=== PATIENT | male | born 1935 | race Caucasian/White ===

== ENCOUNTER 2019-06-25 10:56 | Inpatient (IN) ==
--- NOTE | 2019-06-25 12:00 | XRay Report ---
XR chest 1V portable CLINICAL HISTORY: weakness COMPARISON STUDY: No previous studies for comparison. 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 There is no pneumothorax or pleural effusi on. No consolidation is present. No evidence for pulmonary edema. Linear right lower lung opacity fav ors atelectasis. There is mild cardiomegaly. IMPRESSION: No acute cardiopulmonary findings. Electronically signed by: Geovanni Lindo M.D. 06/25/2019 11:59 AM
--- NOTE | 2019-06-25 12:01 | XRay Report ---
XR knee LT 3V CLINICAL HISTORY: 84 years-old Male presenting with fall onto L knee 3 days ago, now with weakness. TECHNIQUE: Frontal, crosstable lateral, and sunrise views of the left knee were obtained. COMPARISON: None. FINDINGS: Knee joint congruent. Moderate to severe medial joint space loss. Tricompartmental osteophytosis. Cho ndrocalcinosis evident in the lateral compartment. Moderate knee joint effusion primarily in the supr apatellar recess with an equivocal fat fluid level. No acute fracture or malalignment. Atheroscleroti c calcifications. Suspected underlying osteopenia. IMPRESSION: 1. Moderate knee joint effusion with questionable lipohemarthrosis. If there is concern, consider CT for further evaluation of the possible intra-articular fracture. 2. No other radiographic evidence to suggest fracture. 3. Tricompartmental degenerative changes most severe in the medial compartment. 4. Osteopenia. Electronically signed by: Galindo Rutledge M.D. 06/25/2019 12:00 PM
[2019-06-25] MEDS: SODIUM CHLORIDE 0.9% 1000ML 1,000 ML IV SCH ×2 (12:10→19:41)
[2019-06-25 12:20] LABS: Eosinophils # (auto) 0.01 K/uL (0-0.5); Eosinophils % (auto) 0.2 %; Hematocrit (blood only) 43.7 % (42-52); Hemoglobin 14.6 g/dL (14.0-18.0); Immature Granulocytes # (auto) 0.02 K/uL (0.00-0.02); Immature Granulocytes % (auto) 0.4 %; Lymphocytes # (auto) 1.06 K/uL (1.2-3.4); Lymphocytes % (auto) 19.2 %; Mean Corpuscular Hemoglobin 30.7 pg (25-34); Mean Corpuscular Hgb Conc 33.4 g/dL (32-36); Mean Corpuscular Volume 91.8 fL (80-100); Mean Platelet Volume 10.5 fL (7.4-10.4); Monocytes # (auto) 0.78 K/uL (0.11-0.59); Monocytes % (auto) 14.1 %; Neutrophils # (auto) 3.65 K/uL (1.4-6.5); Neutrophils % (auto) 66.1 %; Platelet Count 130 K/uL (130-400); RDW Coefficient of Variation 13.4 % (11.5-14.5); Red Blood Count 4.76 M/uL (4.7-6.1); White Blood Count 5.52 K/uL (4.8-10.8)
[2019-06-25 12:35] LABS: Alanine Aminotransferase 22 U/L (12-78); Albumin Level 3.3 gm/dl (3.4-5.0); Aspartate Aminotransferase 12 U/L (15-37); BUN Creatinine Ratio 20.6 (10-20); Blood Urea Nitrogen 21 mg/dl (7-18); Calcium 9.5 mg/dl (8.5-10.1); Carbon Dioxide 26 mmol/L (21-32); Chloride 103 mmol/L (98-107); Creatinine Clr Calc Pharmacy 61.4 ml/min; Est GFR (African American) 76.8; Est GFR (Non-African American) 66.2; Glucose 233 mg/dl (70-99); Potassium 4.1 mmol/L (3.5-5.1); Sodium 136 mmol/L (136-145)
--- NOTE | 2019-06-25 12:37 | CT Scan Report ---
CT OF THE HEAD WITHOUT CONTRAST CLINICAL HISTORY: falls COMPARISON STUDY: No previous studies for comparison. CT DOSE: 537.48 mGy.cm TECHNIQUE: Helical axial images of the head were obtained without IV contrast. Automated exposure con trol was utilized for the study. A dose lowering technique was utilized adhering to the principles o f ALARA. FINDINGS: No acute intracranial hemorrhage, midline shift or mass effect is present. Mild atrophy is noted. This accounts for mild ventricular dilatation. The basilar cisterns are patent. There are no e xtra-axial collections. White matter hypodensity suggests small vessel disease. There are no findings to suggest acute dural sinus thrombosis or acute territorial infarct. There is no calvarial fracture . Incidental note is made of a partially imaged 5.2 cm right occipital scalp lipoma. IMPRESSION: No acute intracranial findings. Electronically signed by: Geovanni Lindo M.D. 06/25/2019 12:36 PM
[2019-06-25 12:44] LABS: Albumin Globulin Ratio 0.7 (0.9-2); Alkaline Phosphatase 95 U/L (45-117); Bilirubin,Total 1.4 mg/dl (0.2-1); Globulin 4.9 gm/dl (2.5-4.0); Total Protein 8.2 gm/dl (6.4-8.2); Troponin I < 0.015 ng/ml (0-0.045)
[2019-06-25 13:03] LABS: Appearance Urine Clear (Clear); Bacteria Urine Automated 1+ (Negative); Bilirubin Urine Negative (Negative); Blood Urine 1+ (Negative); Cast Urine Automated 0 /lpf (0-5); Color Urine Yellow; Epithelial Cell Urine Auto 0-5 /lpf (0-5); Glucose Urine UA 3+ (Negative); Ketones Urine Negative (Negative); Leukocyte Esterase Urine 2+ (Negative); Nitrite Urine Negative (Negative); Protein Urine Negative (Negative); RBC Urine Automated 0-4 /hpf (0-4); Specific Gravity Urine 1.026 (1.000-1.030); Urobilinogen Urine Negative (Negative); pH Urine 6.5 (4.5-7.5)
--- NOTE | 2019-06-25 14:04 | CT Scan Report ---
CT knee LT wo con CT DOSE: 194.91 mGy.cm CLINICAL HISTORY: Pain status post trauma. Joint effusion. No fracture visualized on conventional x-r ay. TECHNIQUE: Helical images were acquired in the transverse plane. Sagittal and coronal reformatted yasmany ges were reviewed. A dose lowering technique was utilized adhering to the principles of ALARA. COMPARISON STUDY: X-ray study dated 06/25/2019 FINDINGS: There is a suprapatellar joint effusion. There is a small popliteal cyst. The bones are osteopenic. There is chondrocalcinosis. There is marked narrowing in the medial joint compartment. There is an age-indeterminate fracture of the anterior aspect of the lateral tibial plateau demonstra ting 2 mm of depression. If more accurate dating is necessary, an MRI could be obtained in follow-up. IMPRESSION: 1. Age-indeterminate fracture of the anterior aspect of the lateral tibial plateau demonstrating 2 mm of depression 2. Advanced osteoarthritic changes with chondrocalcinosis 3. Osteopenia 4. Suprapatellar joint effusion and small popliteal cyst. No lipohemarthrosis identified Electronically signed by: Steven Holm M.D. 06/25/2019 2:03 PM
--- NOTE | 2019-06-25 15:01 | Emergency Department Note ---
Entered by Cynthia Andre acting as a scribe for History of Present Illness General Chief complaint: Knee Injury/Pain Source: patient History of Present Illness Onset (ago): day(s) 2 Location: knee (left) Pain Consistency: + other (persistent) Maximum Pain Intensity: 0 Exacerbated By: + movement (movement of knee, standing on leg) Associated symptoms: + denies other symptoms (neck pain, head trauma, vomiting, nausea, weakness) and + other (difficulty ambulating, excoriations around knee, contusion around knee, fluid found on x-ray) The patient is a 84 year old male that is presenting to the Emergency Room with complaints of persistent left knee pain that started 2 days ago following a fall. The patient reports that he was walking up the stairs into his house when he tripped and fell onto his knee. He states that he laid down on his porch for 1 hour before being found by his neighbors. He notes that he has been having inc reased difficulty moving around his house since that time. He states that the pain worsens with movement of the leg or with putting weight on the leg. The patient reports that he was unable to stand up from his toilet 2 days ago and had to call his relatives to help him stand up. He states that he was taken to urgent care in [facility] and had an x-ray done at that time. He notes that there was no fracture or dislocation noted on the x-ray. He reports that he was found to have a contusion with fluid buildup in the joint as well as arthritic changes. He notes that he was started on Prednisone which he started taking yesterday. He denies any head trauma, neck pain, vomiting, or nausea. He denies any weakness in the leg. The patient reports that he has fallen in the past but not due to his knee. He denies any history of surgery in his left knee. He denies taking any blood thinners besides a daily baby aspirin. He notes that he lives by himself in a house. He reports that he has a history of CAD with a pacemaker. He states that he has a history of diabetes. Home Medications Home Medications Medication Instructions Recorded Confirmed Type brinzolamide [Azopt] 1 drp OPB BID 06/25/19 06/25/19 History carvedilol [Coreg] 25 mg PO BIDM 06/25/19 06/25/19 History furosemide 40 mg PO QAM 06/25/19 06/25/19 History insulin glargine [Lantus Solostar 30 unit SUBCUT QAM 06/25/19 06/25/19 History U-100 Insulin] isosorbide mononitrate 30 mg PO QAM 06/25/19 06/25/19 History levothyroxine 112 mcg PO QAM 06/25/19 06/25/19 History lisinopril 2.5 mg PO MOWEFR 06/25/19 06/25/19 History potassium chloride [Klor-Con M20] 20 meq PO QAM 06/25/19 06/25/19 History prednisone 5 - 30 mg PO DAILY 06/25/19 06/25/19 History simvastatin 10 mg PO HS 06/25/19 06/25/19 History sitagliptin [Januvia] 100 mg PO QAM 06/25/19 06/25/19 History spironolactone [Aldactone] 25 mg PO QAM 06/25/19 06/25/19 History rivaroxaban [Xarelto] 10 mg PO DAILY 21 Days #21 tab 06/26/19 Rx Allergies Allergy/AdvReac Type Severity Reaction Status Date / Time metolazone AdvReac Dizziness Unverified 06/25/19 12:29 and Blood Pressure Dropped Past Med/Surg History Medical History CAD (coronary artery disease) Diabetes Pacemaker Family History Other Family history non-contributory Social History Preferred Language: Divehi Communication Ability: Effective Transition Lead Required: No Beliefs That Will Affect Care: None Current Living Situation: Alone current occupational status: retired Other Information That Helps Us Care for You: No Feels Safe at Home: Yes Safety Concerns: Feels Safe At This Time Smoking Status: Former smoker Hx Alcohol Use: Yes Alcohol type: beer Hx Substance Use: No Review of Systems See HPI for pertinent positives & negatives. and A total of 10 systems reviewed and were otherwise negative Physical Exam Vital Signs Vital Signs - 24 hr 06/25/19 19:56 06/25/19 20:25 06/25/19 20:28 Temperature 36.6 C 36.5 C Temperature Source Oral Oral Pulse Rate 61 Pulse Rate [Apical] 83 58 L Pulse Rate [Finger] Respiratory Rate 16 18 Blood Pressure [Left Arm] Blood Pressure [Right Arm] 109/70 144/71 H Blood Pressure Mean [Left Arm] Blood Pressure Mean [Right Arm] 83 95 Blood Pressure Position [Left Arm] Pulse Oximetry 93 95 Oxygen Delivery Method 06/25/19 23:42 06/25/19 23:45 06/26/19 03:48 Temperature 36.6 C 36.5 C Temperature Source Oral Oral Pulse Rate 60 Pulse Rate [Apical] Pulse Rate [Finger] 60 61 Respiratory Rate 18 20 Blood Pressure [Left Arm] 125/75 126/77 Blood Pressure [Right Arm] Blood Pressure Mean [Left Arm] 91 93 Blood Pressure Mean [Right Arm] Blood Pressure Position [Left Arm] Semi-fowlers Lying Pulse Oximetry 92 95 Oxygen Delivery Method Room Air Room Air 06/26/19 07:24 06/26/19 08:00 Temperature 36.5 C Temperature Source Oral Pulse Rate 61 Pulse Rate [Apical] 16 L Pulse Rate [Finger] 60 Respiratory Rate 96 H Blood Pressure [Left Arm] 127/75 Blood Pressure [Right Arm] Blood Pressure Mean [Left Arm] 92 Blood Pressure Mean [Right Arm] Blood Pressure Position [Left Arm] Lying Pulse Oximetry 96 Oxygen Delivery Method Vital signs reviewed. General: Elderly chronically ill-appearing male, in no significant distress. HEENT: No scleral icterus, PERRLA, neck supple. Atraumatic. Poor dentition, chewing tobacco on exam. Cardiovascular: Regular rate and rhythm, no extra sounds. Pulmonary: Clear to auscultation bilaterally, normal work of breathing. Abdomen: Soft, nontender, nondistended, positive bowel sounds. Musculoskeletal: Atraumatic, no peripheral edema. Mild excoriations to anterior left knee with minimal effusion. No ecchymosis. Chronic arthritic changes bilaterally. Pain with range of motion of left knee. No ligamentous laxity. Neurologic: Patient awake alert and oriented x 3. Skin: Warm, dry, no rash Course Course 1118:The patient was evaluated in room C05. A complete history and physical examination was performed. 1326: Radiology states that there is a possible intra-articular fracture in the left knee and recommended a follow up CT, which has been ordered. 1429: Upon reevaluation, the patient is resting comfortably. I discussed laboratory and radiographic results with the patient. He verbalized agreement of the treatment plan. The patient will be evaluated for further management and care. 1444: I discussed the patients case with Dr. Santillan, [facility], who will evaluate the patient for further management and care. 1452: I discussed the patient's case with Dr. Olivera, Orthopedic Surgery, who will evaluate the patient in the ED for further care in the hospital. Administered Medications Brinzolamide (Azopt) 1 drops OPB BID ROSITA Stop: 07/25/19 20:59 Last Admin: 06/26/19 07:42 Dose: 1 drops Documented by: [id number] Admin: 06/25/19 21:41 Dose: 1 drops Documented by: [id number] Carvedilol (Coreg) 25 mg PO BIDM ROSITA Stop: 07/26/19 07:59 Last Admin: 06/26/19 16:43 Dose: 25 mg Documented by: [id number] Admin: 06/26/19 07:42 Dose: 25 mg Documented by: [id number] Furosemide (Lasix) 40 mg PO QAM ROSITA Stop: 07/26/19 08:59 Last Admin: 06/26/19 07:43 Dose: 40 mg Documented by: [id number] Ceftriaxone Sodium 2,000 mg/ (Dextrose) 70 mls @ 140 mls/hr IV Q24H ROSITA Stop: 07/06/19 00:59 Last Infusion: 06/26/19 01:52 Dose: 0 mls/hr Documented by: [id number] Admin: 06/26/19 01:22 Dose: 140 mls/hr Documented by: [id number] Insulin Aspart (Novolog Flexpen) 0 units SC ACHS ROSITA Stop: 07/26/19 16:29 Last Admin: 06/26/19 17:39 Dose: 8 units Documented by: [id number] Cosigned by: [id number] Insulin Glargine (Lantus Solostar Pen) 30 units SQ QAM ROSITA Stop: 07/26/19 08:59 Last Admin: 06/26/19 07:43 Dose: 30 units Documented by: [id number] Cosigned by: [id number] Isosorbide Mononitrate (Imdur Extended Rel) 30 mg PO QAM ROSITA Stop: 07/26/19 08:59 Last Admin: 06/26/19 07:43 Dose: 30 mg Documented by: [id number] Levothyroxine Sodium (Synthroid) 112 mcg PO DAILYBB [facility] Stop: 07/26/19 06:29 Last Admin: 06/26/19 05:55 Dose: 112 mcg Documented by: [id number] Oxycodone/Acetaminophen (Percocet 5mg/325mg) 1 tab PO Q4H PRN PRN Reason: Pain Stop: 07/09/19 19:38 Last Admin: 06/26/19 07:46 Dose: 1 tab Documented by: [id number] Potassium Chloride (Klor-Con M20) 20 meq PO QAM [facility] Stop: 07/26/19 08:59 Last Admin: 06/26/19 07:43 Dose: 20 meq Documented by: [id number] Prednisone (Prednisone) 20 mg PO DAILY [facility]; Taper Stop: 06/30/19 08:59 Last Admin: 06/26/19 07:43 Dose: 20 mg Documented by: [id number] Rivaroxaban (Xarelto) 10 mg PO DAILY [facility] Stop: 07/16/19 09:01 Last Admin: 06/26/19 09:46 Dose: 10 mg Documented by: [id number] Simvastatin (Zocor) 10 mg PO HS [facility] Stop: 07/25/19 20:59 Last Admin: 06/25/19 21:42 Dose: 10 mg Documented by: [id number] Spironolactone (Aldactone) 25 mg PO QAM [facility] Stop: 07/26/19 08:59 Last Admin: 06/26/19 07:42 Dose: 25 mg Documented by: [id number] Discontinued Medications Sodium Chloride (Nss 1000ml) 1,000 mls @ 125 mls/hr IV .Q8H [facility] Stop: 07/25/19 11:29 Last Admin: 06/25/19 19:41 Dose: Not Given Documented by: [id number] Infusion: 06/25/19 19:41 Dose: 0 mls/hr Documented by: [id number] Admin: 06/25/19 12:10 Dose: 125 mls/hr Documented by: [id number] Sodium Chloride (Nss 1000ml) 500 mls @ 999 mls/hr IV .Q31M ONE Stop: 06/26/19 12:06 Last Infusion: 06/26/19 12:22 Dose: 0 mls/hr Documented by: [id number] Admin: 06/26/19 11:46 Dose: 999 mls/hr Documented by: [id number] Medical Decision Making Differential Diagnosis Differential diagnosis: Etiologies such as fracture, dislocation, neurovascular compromise, compartment syndrome, soft tissue injury, as well as others were entertained. Medical Records Attestation: I reviewed the patient's medical records. Home Medications Current Medication List: was personally reviewed by me Laboratory Data Attestation: I reviewed the patient's lab results. Result diagrams: 06/26/19 09:05 06/26/19 09:05 Lab Results 06/25/19 06/25/19 06/25/19 Range/Units 12:00 12:00 12:00 WBC 5.52 (4.8-10.8) K/uL RBC 4.76 (4.7-6.1) M/uL Hgb 14.6 (14.0-18.0) g/dL Hct 43.7 (42-52) % MCV 91.8 (80-100) fL MCH 30.7 (25-34) pg MCHC 33.4 (32-36) g/dL RDW Std Deviation 45.0 (36.4-46.3) fL RDW Coeff of Glenda 13.4 (11.5-14.5) % Plt Count 130 (130-400) K/uL MPV 10.5 H (7.4-10.4) fL Immature Gran % (Auto) 0.4 % Neut % (Auto) 66.1 % Lymph % (Auto) 19.2 % [place] % (Auto) 14.1 % Eos % (Auto) 0.2 % Baso % (Auto) 0.0 % Immature Gran # (Auto) 0.02 (0.00-0.02) K/uL Neut # (Auto) 3.65 (1.4-6.5) K/uL Lymph # (Auto) 1.06 L (1.2-3.4) K/uL [place] # (Auto) 0.78 H (0.11-0.59) K/uL Eos # (Auto) 0.01 (0-0.5) K/uL Baso # (Auto) 0.00 (0-0.2) K/uL Sodium 136 (136-145) mmol/L Potassium 4.1 (3.5-5.1) mmol/L Chloride 103 (98-107) mmol/L Carbon Dioxide 26 (21-32) mmol/L Anion Gap 7.0 (3-11) BUN 21 H (7-18) mg/dl Creatinine 1.02 (0.6-1.4) mg/dl Est Cr Clr Drug Dosing 61.4 ml/min Est GFR ( Amer) 76.8 Est GFR (Non-Af Amer) 66.2 BUN/Creatinine Ratio 20.6 H (10-20) Glucose 233 H (70-99) mg/dl POC Glucose (70-99) Calcium 9.5 (8.5-10.1) mg/dl Total Bilirubin 1.4 H (0.2-1) mg/dl AST 12 L (15-37) U/L ALT 22 (12-78) U/L Alkaline Phosphatase 95 (45-117) U/L Troponin I < 0.015 (0-0.045) ng/ml Total Protein 8.2 (6.4-8.2) gm/dl Albumin 3.3 L (3.4-5.0) gm/dl Globulin 4.9 H (2.5-4.0) gm/dl Albumin/Globulin Ratio 0.7 L (0.9-2) TSH 1.330 (0.300-4.500) uIu/ml Urine Color Yellow Urine Appearance Clear (Clear) Urine pH 6.5 (4.5-7.5) Ur Specific [place] 1.026 (1.000-1.030) Urine Protein Negative (Negative) Urine Glucose (UA) 3+ H (Negative) Urine Ketones Negative (Negative) Urine Blood 1+ H (Negative) Urine Nitrite Negative (Negative) Urine Bilirubin Negative (Negative) Urine Urobilinogen Negative (Negative) Ur Leukocyte Esterase 2+ H (Negative) Urine WBC (Auto) 10-30 H (0-5) /hpf Urine RBC (Auto) 0-4 (0-4) /hpf U Hyaline Cast (Auto) 0 (0-5) /lpf U Epithel Cells (Auto) 0-5 (0-5) /lpf Urine Bacteria (Auto) 1+ H (Negative) Urine Yeast Budding A (None Prsent) 06/25/19 06/26/19 06/26/19 Range/Units 19:32 07:30 09:05 WBC 6.50 (4.8-10.8) K/uL RBC 4.17 L (4.7-6.1) M/uL Hgb 12.9 L (14.0-18.0) g/dL Hct 38.5 L (42-52) % MCV 92.3 (80-100) fL MCH 30.9 (25-34) pg MCHC 33.5 (32-36) g/dL RDW Std Deviation 44.6 (36.4-46.3) fL RDW Coeff of Glenda 13.2 (11.5-14.5) % Plt Count 131 (130-400) K/uL MPV 9.6 (7.4-10.4) fL Immature Gran % (Auto) 0.3 % Neut % (Auto) 60.2 % Lymph % (Auto) 25.4 % [place] % (Auto) 12.6 % Eos % (Auto) 1.2 % Baso % (Auto) 0.3 % Immature Gran # (Auto) 0.02 (0.00-0.02) K/uL Neut # (Auto) 3.91 (1.4-6.5) K/uL Lymph # (Auto) 1.65 (1.2-3.4) K/uL [place] # (Auto) 0.82 H (0.11-0.59) K/uL Eos # (Auto) 0.08 (0-0.5) K/uL Baso # (Auto) 0.02 (0-0.2) K/uL Sodium (136-145) mmol/L Potassium (3.5-5.1) mmol/L Chloride (98-107) mmol/L Carbon Dioxide (21-32) mmol/L Anion Gap (3-11) BUN (7-18) mg/dl Creatinine (0.6-1.4) mg/dl Est Cr Clr Drug Dosing ml/min Est GFR ( Amer) Est GFR (Non-Af Amer) BUN/Creatinine Ratio (10-20) Glucose (70-99) mg/dl POC Glucose 192 H 98 (70-99) Calcium (8.5-10.1) mg/dl Total Bilirubin (0.2-1) mg/dl AST (15-37) U/L ALT (12-78) U/L Alkaline Phosphatase (45-117) U/L Troponin I (0-0.045) ng/ml Total Protein (6.4-8.2) gm/dl Albumin (3.4-5.0) gm/dl Globulin (2.5-4.0) gm/dl Albumin/Globulin Ratio (0.9-2) TSH (0.300-4.500) uIu/ml Urine Color Urine Appearance (Clear) Urine pH (4.5-7.5) Ur Specific [place] (1.000-1.030) Urine Protein (Negative) Urine Glucose (UA) (Negative) Urine Ketones (Negative) Urine Blood (Negative) Urine Nitrite (Negative) Urine Bilirubin (Negative) Urine Urobilinogen (Negative) Ur Leukocyte Esterase (Negative) Urine WBC (Auto) (0-5) /hpf Urine RBC (Auto) (0-4) /hpf U Hyaline Cast (Auto) (0-5) /lpf U Epithel Cells (Auto) (0-5) /lpf Urine Bacteria (Auto) (Negative) Urine Yeast (None Prsent) 06/26/19 06/26/19 Range/Units 09:05 11:43 WBC (4.8-10.8) K/uL RBC (4.7-6.1) M/uL Hgb (14.0-18.0) g/dL Hct (42-52) % MCV (80-100) fL MCH (25-34) pg MCHC (32-36) g/dL RDW Std Deviation (36.4-46.3) fL RDW Coeff of Glenda (11.5-14.5) % Plt Count (130-400) K/uL MPV (7.4-10.4) fL Immature Gran % (Auto) % Neut % (Auto) % Lymph % (Auto) % [place] % (Auto) % Eos % (Auto) % Baso % (Auto) % Immature Gran # (Auto) (0.00-0.02) K/uL Neut # (Auto) (1.4-6.5) K/uL Lymph # (Auto) (1.2-3.4) K/uL [place] # (Auto) (0.11-0.59) K/uL Eos # (Auto) (0-0.5) K/uL Baso # (Auto) (0-0.2) K/uL Sodium 134 L (136-145) mmol/L Potassium 4.0 (3.5-5.1) mmol/L Chloride 103 (98-107) mmol/L Carbon Dioxide 26 (21-32) mmol/L Anion Gap 5.0 (3-11) BUN 19 H (7-18) mg/dl Creatinine 0.78 (0.6-1.4) mg/dl Est Cr Clr Drug Dosing 80.3 ml/min Est GFR ( Amer) 94.7 Est GFR (Non-Af Amer) 81.7 BUN/Creatinine Ratio 24.9 H (10-20) Glucose 162 H (70-99) mg/dl POC Glucose 211 H (70-99) Calcium 8.6 (8.5-10.1) mg/dl Total Bilirubin 1.1 H (0.2-1) mg/dl AST 38 H (15-37) U/L ALT 23 (12-78) U/L Alkaline Phosphatase 71 (45-117) U/L Troponin I (0-0.045) ng/ml Total Protein 6.6 (6.4-8.2) gm/dl Albumin 2.7 L (3.4-5.0) gm/dl Globulin 3.9 (2.5-4.0) gm/dl Albumin/Globulin Ratio 0.7 L (0.9-2) TSH (0.300-4.500) uIu/ml Urine Color Urine Appearance (Clear) Urine pH (4.5-7.5) Ur Specific [place] (1.000-1.030) Urine Protein (Negative) Urine Glucose (UA) (Negative) Urine Ketones (Negative) Urine Blood (Negative) Urine Nitrite (Negative) Urine Bilirubin (Negative) Urine Urobilinogen (Negative) Ur Leukocyte Esterase (Negative) Urine WBC (Auto) (0-5) /hpf Urine RBC (Auto) (0-4) /hpf U Hyaline Cast (Auto) (0-5) /lpf U Epithel Cells (Auto) (0-5) /lpf Urine Bacteria (Auto) (Negative) Urine Yeast (None Prsent) Imaging Data Radiologist's Impression: Radiology results as stated below per my review and the radiologist's interpretation: XR knee LT 3V CLINICAL HISTORY: 84 years-old Male presenting with fall onto L knee 3 days ago, now with weakness. TECHNIQUE: Frontal, crosstable lateral, and sunrise views of the left knee were obtained. COMPARISON: None. FINDINGS: Knee joint congruent. Moderate to severe medial joint space loss. Tricompartmental osteophytosis. Chondrocalcinosis evident in the lateral compartment. Moderate knee joint effusion primarily in the suprapatellar recess with an equivocal fat fluid level. No acute fracture or malalignment. Atherosclerotic calcifications. Suspected underlying osteopenia. IMPRESSION: 1. Moderate knee joint effusion with questionable lipohemarthrosis. If there is concern, consider CT for further evaluation of the possible intra-articular fracture. 2. No other radiographic evidence to suggest fracture. 3. Tricompartmental degenerative changes most severe in the medial compartment. 4. Osteopenia. Electronically signed by: Galindo Rutledge M.D. 06/25/2019 12:00 PM XR chest 1V portable CLINICAL HISTORY: weakness COMPARISON STUDY: No previous studies for comparison. 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 There is no pneumothorax or pleural effusion. No consolidation is present. No evidence for pulmonary edema. Linear right lower lung opacity favors atelectasis. There is mild cardiomegaly. IMPRESSION: No acute cardiopulmonary findings. Electronically signed by: Geovanni Lindo M.D. 06/25/2019 11:[address] OF THE HEAD WITHOUT CONTRAST CLINICAL HISTORY: falls COMPARISON STUDY: No previous studies for comparison. CT DOSE: 537.48 mGy.cm TECHNIQUE: Helical axial images of the head were obtained without IV contrast. Automated exposure control was utilized for the study. A dose lowering technique was utilized adhering to the principles of ALARA. FINDINGS: No acute intracranial hemorrhage, midline shift or mass effect is present. Mild atrophy is noted. This accounts for mild ventricular dilatation. The basilar cisterns are patent. There are no extra-axial collections. White matter hypodensity suggests small vessel disease. There are no findings to suggest acute dural sinus thrombosis or acute territorial infarct. There is no calvarial fracture. Incidental note is made of a partially imaged 5.2 cm right occipital scalp lipoma. IMPRESSION: No acute intracranial findings. Electronically signed by: Geovanni Lindo M.D. 06/25/2019 12:[address] knee LT wo con CT DOSE: 194.91 mGy.cm CLINICAL HISTORY: Pain status post trauma. Joint effusion. No fracture visualized on conventional x-ray. TECHNIQUE: Helical images were acquired in the transverse plane. Sagittal and coronal reformatted images were reviewed. A dose lowering technique was utilized adhering to the principles of ALARA. COMPARISON STUDY: X-ray study dated 06/25/2019 FINDINGS: There is a suprapatellar joint effusion. There is a small popliteal cyst. The bones are osteopenic. There is chondrocalcinosis. There is marked narrowing in the medial joint compar tment. There is an age-indeterminate fracture of the anterior aspect of the lateral tibial plateau demonstrating 2 mm of depression. If more accurate dating is necessary, an MRI could be obtained in follow-up. IMPRESSION: 1. Age-indeterminate fracture of the anterior aspect of the lateral tibial plateau demonstrating 2 mm of depression 2. Advanced osteoarthritic changes with chondrocalcinosis 3. Osteopenia 4. Suprapatellar joint effusion and small popliteal cyst. No lipohemarthrosis identified Electronically signed by: Steven Holm M.D. 06/25/2019 2:03 PM ECG Data Attestation: I personally reviewed and interpreted this ECG as follows: Indication: + weakness Rate (beats per minute): 65 Rhythm: + other (atrial sensed ventricular paced) ECG Intervals/blocks: + Prolonged QT (486) ECG Findings: + PVCs Comparison ECG Date: no prior available Blood Pressure Blood Pressure Findings: Normal blood pressure MDM Narrative This patient was evaluated and appeared to be in no significant distress. IV a ccess was obtained and laboratory work was drawn. Patient was placed on the director sales training and found to be a paced rhythm. Knee x-ray was performed and is significant for moderate knee effusion and CT was recommended in follow-up follow-up. CT imaging is found to have a tibial plateau fracture, explaining the patient's pain with ambulation. Knee immobilizer was placed. Patient's case was discussed with Dr. Maciel of orthopedic surgery. Due to the patient's ambulatory dysfunction, advanced age and the fact that he lives at home alone, the patient will be evaluated by the hospitalist service for determination of disposition after PT OT evaluation. Impression & Plan Fracture of tibial plateau, Ambulatory dysfunction Discharge Plan Visit Data *Final* Discharge Date/Time: 06/25/19 19:04 Chief Complaint: Knee Injury/Pain ED Provider: Dori Jovel Discharge Problem: Fracture of tibial plateau, Ambulatory dysfunction Patient Disposition: Admitted As Inpatient Discharge Instructions Interventions: ED Discharge Assessment Last Done: 06/25/19 19:04 Discharge Problem: Fracture of tibial plateau Qualifiers: Encounter type: initial encounter Fracture type: closed Laterality: left Qualified Code(s): S82.142A - Displaced bicondylar fracture of left tibia, initial encounter for closed fracture The scribe's documentation has been prepared under my direction and personally reviewed by me in its entirety. I confirm that the note above accurately reflects all work, treatment, procedures, and medical decision making performed by me.
--- NOTE | 2019-06-25 15:11 | Orthopedic Consultation ---
Date of Consultation June 25, 2019 Assessment & Plan (1) Fracture of tibial plateau: Hinged knee brace unlocked to allow for FROM but non-weightbearing for 6 weeks with walker assistance Xarelto 10 mg daily x 21 days for DVT prophylaxis (Rx will be sent to his pharmacy) Pain control with PO meds provided by ED Ice knee 4x/day for 20-25 mins Elevate Left leg Will F/u with Dinh Morejon PA-C at [facility] in 2 weeks With questions please call . Supervising Physician Co-Signing Physician Notes I saw and examined the patient in the ER, and reviewed his CT scan. 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 He has no valgus instability on exam, however. Agree with above note and plan. History of Present Illness Reason for Consultation: left tibial plateau fracture Attending Physician: Galindo Olivera MD History of Present Illness This 84 yo M is seen in ED this afternoon for consultation. Patient states that he fell going up one step on his porch, striking his left knee. Patient was seen at [facility] in [place], had x-rays and was told that he had no fracture. Patient states the he has had increased pain and difficulty bearing weight or ambulating on the left leg. Patient denies CP, SOB, nausea, vomiting, fever, chills or sweats at this time. Patient also denies numbness or tingling in either lower extremity. Allergies Allergy/AdvReac Type Severity Reaction Status Date / Time metolazone AdvReac Dizziness Unverified 06/25/19 12:29 and Blood Pressure Dropped Home Medications Home Medications Medication Instructions Recorded Confirmed Type brinzolamide [Azopt] 1 drp OPB BID 06/25/19 06/25/19 History carvedilol [Coreg] 25 mg PO BIDM 06/25/19 06/25/19 History furosemide 40 mg PO QAM 06/25/19 06/25/19 History insulin glargine [Lantus Solostar 30 unit SUBCUT QAM 06/25/19 06/25/19 History U-100 Insulin] isosorbide mononitrate 30 mg PO QAM 06/25/19 06/25/19 History levothyroxine 112 mcg PO QAM 06/25/19 06/25/19 History lisinopril 2.5 mg PO MOWEFR 06/25/19 06/25/19 History potassium chloride [Klor-Con M20] 20 meq PO QAM 06/25/19 06/25/19 History prednisone 5 - 30 mg PO DAILY 06/25/19 06/25/19 History simvastatin 10 mg PO HS 06/25/19 06/25/19 History sitagliptin [Januvia] 100 mg PO QAM 06/25/19 06/25/19 History spironolactone [Aldactone] 25 mg PO QAM 06/25/19 06/25/19 History Patient History Medical History CAD (coronary artery disease) Diabetes Pacemaker Family History Other Family history non-contributory Social History Preferred Language: Hebrew Communication Ability: Effective Frameman Required: No Beliefs That Will Affect Care: None Current Living Situation: Alone current occupational status: retired Other Information That Helps Us Care for You: No Feels Safe at Home: Yes Safety Concerns: Feels Safe At This Time Smoking Status: Former smoker Hx Alcohol Use: Yes Alcohol type: beer Hx Substance Use: No Review of Systems Review of Systems: All systems reviewed & are unremarkable except as noted in HPI & below Physical Exam Physical Exam: Left knee: Rom from 12-95. Scabbed over abrasions to anterior surface of knee. Mild edema. MJLT. No varus/valgus laxity. Patella non- mobile due to arthritic change. No erythema, ecchymosis, warmth or palpable deformity. No open skin areas or discharge noted. Periph pulses easily palpable. Calf soft and supple. Able to actively dorsi/plantar flex left foot. Toes mobile and patient is able to depict light sensation to touch. Results & Data Vital Signs (Past 12 Hours) Vital Signs Temp Pulse Pulse Resp BP BP Pulse Ox 06/25/19 14:00 62 21 118/67 94 06/25/19 12:00 64 22 122/71 96 06/25/19 10:55 64 20 98 06/25/19 10:50 36.5 C 62 20 125/65 94 Laboratory Results 06/25/19 06/25/19 06/25/19 Range/Units 12:00 12:00 12:00 WBC 5.52 (4.8-10.8) K/uL RBC 4.76 (4.7-6.1) M/uL Hgb 14.6 (14.0-18.0) g/dL Hct 43.7 (42-52) % MCV 91.8 (80-100) fL MCH 30.7 (25-34) pg MCHC 33.4 (32-36) g/dL RDW Std Deviation 45.0 (36.4-46.3) fL RDW Coeff of Glenda 13.4 (11.5-14.5) % Plt Count 130 (130-400) K/uL MPV 10.5 H (7.4-10.4) fL Immature Gran % (Auto) 0.4 % Neut % (Auto) 66.1 % Lymph % (Auto) 19.2 % [place] % (Auto) 14.1 % Eos % (Auto) 0.2 % Baso % (Auto) 0.0 % Immature Gran # (Auto) 0.02 (0.00-0.02) K/uL Neut # (Auto) 3.65 (1.4-6.5) K/uL Lymph # (Auto) 1.06 L (1.2-3.4) K/uL [place] # (Auto) 0.78 H (0.11-0.59) K/uL Eos # (Auto) 0.01 (0-0.5) K/uL Baso # (Auto) 0.00 (0-0.2) K/uL Sodium 136 (136-145) mmol/L Potassium 4.1 (3.5-5.1) mmol/L Chloride 103 (98-107) mmol/L Carbon Dioxide 26 (21-32) mmol/L Anion Gap 7.0 (3-11) BUN 21 H (7-18) mg/dl Creatinine 1.02 (0.6-1.4) mg/dl Est Cr Clr Drug Dosing 61.4 ml/min Est GFR ( Amer) 76.8 Est GFR (Non-Af Amer) 66.2 BUN/Creatinine Ratio 20.6 H (10-20) Glucose 233 H (70-99) mg/dl Calcium 9.5 (8.5-10.1) mg/dl Total Bilirubin 1.4 H (0.2-1) mg/dl AST 12 L (15-37) U/L ALT 22 (12-78) U/L Alkaline Phosphatase 95 (45-117) U/L Troponin I < 0.015 (0-0.045) ng/ml Total Protein 8.2 (6.4-8.2) gm/dl Albumin 3.3 L (3.4-5.0) gm/dl Globulin 4.9 H (2.5-4.0) gm/dl Albumin/Globulin Ratio 0.7 L (0.9-2) TSH 1.330 (0.300-4.500) uIu/ml Urine Color Yellow Urine Appearance Clear (Clear) Urine pH 6.5 (4.5-7.5) Ur Specific [place] 1.026 (1.000-1.030) Urine Protein Negative (Negative) Urine Glucose (UA) 3+ H (Negative) Urine Ketones Negative (Negative) Urine Blood 1+ H (Negative) Urine Nitrite Negative (Negative) Urine Bilirubin Negative (Negative) Urine Urobilinogen Negative (Negative) Ur Leukocyte Esterase 2+ H (Negative) Urine WBC (Auto) 10-30 H (0-5) /hpf Urine RBC (Auto) 0-4 (0-4) /hpf U Hyaline Cast (Auto) 0 (0-5) /lpf U Epithel Cells (Auto) 0-5 (0-5) /lpf Urine Bacteria (Auto) 1+ H (Negative) Urine Yeast Budding A (None Prsent) Diagnostic Findings Dr. Olivera review x-ray and CT. There is evidence of a fracture/avulsed medial osteophyte. Patient has his most exquiste tenderness in this region. (1) Fracture of tibial plateau Encounter type: initial encounter Fracture type: closed Laterality: left Qualified Code(s): S82.142A - Displaced bicondylar fracture of left tibia, initial encounter for closed fracture
[2019-06-25] MEDS ORDERED: POLYETHYLENE (MIRALAX) 17 GM PACK PO PRN (19:39)
[2019-06-25] MEDS ORDERED: ACETAMINOPHEN 325 MG TAB PO PRN (19:39)
[2019-06-25] MEDS ORDERED: OXYCODONE/ACETAMINOPHEN 5mg/325mg TAB PO PRN (19:39)
[2019-06-25] MEDS ORDERED: MAGNESIUM HYDROXIDE SUSP 30 ML UDC PO PRN (19:39)
[2019-06-25] MEDS ORDERED: ALUMINUM/MAGNESIUM SUSP 30 ML UDC PO PRN (19:39)
[2019-06-25] MEDS ORDERED: GLUCOSE 40% GEL 15 GM TUBE PO PRN (20:30)
[2019-06-25] MEDS ORDERED: DEXTROSE 50% 50 ML SYRINGE IV PRN (20:30)
[2019-06-25] MEDS ORDERED: CARBOHYDRATES FOR HYPOGLYCEMIA PO PRN (20:30)
[2019-06-25] MEDS ORDERED: GLUCOSE 10 TABS/TUBE PO PRN (20:30)
[2019-06-25] MEDS ORDERED: GLUCAGON FOR INJ 1 MG VIAL IM PRN (20:30)
[2019-06-25] MEDS: BRINZOLAMIDE (AZOPT) OPS 10 ML BTL OPB SCH (21:41)
[2019-06-25] MEDS: SIMVASTATIN 10 MG TAB PO SCH (21:42)
--- NOTE | 2019-06-25 21:51 | History & Physical Report ---
Date of Service June 25, 2019 Assessment & Plan (1) Fracture of tibial plateau: Admits to [facility] on telemetry for observation Consulted orthopedics for hinged knee brace unlocked to allow for FROM but non- weightbearing for 6 weeks with walker assistance Xarelto 10 mg daily x 21 days for DVT prophylaxis Pain control with PO meds Ice knee 4x/day for 20-25 mins Elevate Left leg F/u with Dinh Morejon PA-C at [facility] in 2 weeks at . DVT Xarelto 10 mg daily for 21 days Full code (2) Ambulatory dysfunction: Physical and Occupational Therapy frequent falls. Appreciate evaluation. Present on Admission?: Yes (3) Diabetes: Accu-Cheks before meals and at bedtime. Glycemic control per pharmacy. Present on Admission?: Yes (4) CAD (coronary artery disease): Continue home medication: Lisinopril 2.5 mg p.o., isosorbide mononitrate 30 mg p.o. every morning, furosemide 40 mg p.o. every morning, carvedilol 25 mg p.o. twice daily ID, Spironolactone 25 mg p.o. every morning. (5) Hypothyroidism: Continue levothyroxine 112 MCG's p.o. every morning. TSH normal 1.33 Present on Admission?: Yes (6) Hyperlipidemia: Continue atorvastatin 10 mg p.o. nightly. Present on Admission?: Yes (7) Discharge planning issues: Discharge plan depends on evaluation from physical and occupational therapy. Patient would benefit from shelter with physical and Occupational Therapy. Present on Admission?: Yes History of Present Illness Chief Complaint: Fracture of tibial plateau, frequent falls Primary Care Provider: Tammy Do MD Patient is a 84 years old male with past medical history of Coronary artery disease, diabetes mellitus type 2, ambulatory dysfunction, who presented to the emergency room after he fell on Tuesday night and injured his left leg below the knee. The patient reports that he was walking up the stairs into his house when he tripped and fell onto his knee. He states that he laid down on the porch for 1 hour before being found by his neighbor. He noticed that he has been heavily increased difficulty moving around the house since that time. He stated that the pain worsens with movement of the leg or with putting weight on his leg. The patient reports that he was unable to stand up from his toilet 2 days ago and he had to call his relatives to help him stand up. He states that he was taken to the urgent care in [facility] and had an x-rays done at that time. He noticed that there was no fracture or dislocation noted on the x-rays. He reports that was found to have a contusion with fluid buildup in the joint as well as arthritic changes. He noticed that he was started on prednisone which he started taking yesterday. He denies any head trauma, neck pain vomiting nausea abdominal pain frequency urgency diarrhea. He denies weakness in his legs patient also said that he did not suffer of any syncope or presyncope. Patient also have a pacemaker but he does not know what is the made. EKG reviewed and shows atrial sensed ventricular paced rhythm with occasional premature ventricular complexes.Labs: WBC 5.52, hemoglobin 14.6, hematocrit 43.7 platelets 130, sodium 136, potassium 4.1, BUN 21, creatinine 1.02, GFR 66.2, TSH 1.33. Urine shows 1+ blood, 2+ leukocyte esterase and urine WBCs 10-30, with budding yeast and 1+ bacteria. The decision was made to admit patient for complicated urinary tract infection, fracture of tibial plateau at [facility] on telemetry. Family was told to look for the patient's pacemaker company because they said they have information at home. Pacemaker interrogation not that done yet. Last pacemaker interrogation was 3 months ago. Allergies Allergy/AdvReac Type Severity Reaction Status Date / Time metolazone AdvReac Dizziness Unverified 06/25/19 12:29 and Blood Pressure Dropped Home Medications Home Medications Medication Instructions Recorded Confirmed Type brinzolamide [Azopt] 1 drp OPB BID 06/25/19 06/25/19 History carvedilol [Coreg] 25 mg PO BIDM 06/25/19 06/25/19 History furosemide 40 mg PO QAM 06/25/19 06/25/19 History insulin glargine [Lantus Solostar 30 unit SUBCUT QAM 06/25/19 06/25/19 History U-100 Insulin] isosorbide mononitrate 30 mg PO QAM 06/25/19 06/25/19 History levothyroxine 112 mcg PO QAM 06/25/19 06/25/19 History lisinopril 2.5 mg PO MOWEFR 06/25/19 06/25/19 History potassium chloride [Klor-Con M20] 20 meq PO QAM 06/25/19 06/25/19 History prednisone 5 - 30 mg PO DAILY 06/25/19 06/25/19 History simvastatin 10 mg PO HS 06/25/19 06/25/19 History sitagliptin [Januvia] 100 mg PO QAM 06/25/19 06/25/19 History spironolactone [Aldactone] 25 mg PO QAM 06/25/19 06/25/19 History rivaroxaban [Xarelto] 10 mg PO DAILY 21 Days #21 tab 06/26/19 Rx Past Med/Surg History Medical History CAD (coronary artery disease) Diabetes Pacemaker Family History Other Family history non-contributory Social History Preferred Language: Egyptian Communication Ability: Effective Dip Stand Loader Required: No Beliefs That Will Affect Care: None Current Living Situation: Alone current occupational status: retired Other Information That Helps Us Care for You: No Feels Safe at Home: Yes Safety Concerns: Feels Safe At This Time Smoking Status: Former smoker Hx Alcohol Use: Yes Alcohol type: beer Hx Substance Use: No Review of Systems Review of Systems: All systems reviewed & are unremarkable except as noted in HPI & below Physical Exam Constitutional: WD/WN, vitals as above well developed Eyes: PERRL, conjunctivae normal, anicteric sclerae ENMT: external ear and nose normal, oropharynx normal Neck: trachea midline, no thyromegaly Respiratory: normal respiratory effort, lungs clear to auscultation Cardiovascular: RRR, no murmur, no edema Heart Sounds: normal S1 and normal S2 Vessels: dorsalis pedis pulses present Gastrointestinal (Abdomen): normal bowel sounds, soft, nontender, no hepatosplenomegaly Musculoskeletal: no cyanosis or clubbing, extremities motor strength 5/5 Skin: no rashes, warm and dry Neurologic: patellar DTR's 2+ bilat, sensation intact Psychiatric: A+Ox3, euthymic affect Genitourinary: suprapubic tendreness Lymphatic: no cervical or axillary lymphadenopathy Results & Data Vital Signs (Past 12 Hours) Vital Signs Temp Pulse Pulse Resp BP BP Pulse Ox 06/25/19 20:28 36.5 C 58 L 18 144/71 H 95 06/25/19 20:25 36.6 C 83 16 109/70 93 06/25/19 19:56 61 06/25/19 18:00 66 16 111/66 97 06/25/19 16:00 71 18 121/53 L 97 06/25/19 14:00 62 21 118/67 94 06/25/19 12:00 64 22 122/71 96 06/25/19 10:55 64 20 98 06/25/19 10:50 36.5 C 62 20 125/65 94 Code Status & VTE Plan Code Status Full Code VTE Prophylaxis Plan VTE Prophylaxis will be ordered: Yes PG Care Time/CCT Total # of Minutes Spent Total Time Spent with Patient: Total time spent is greater than 50% in coordination of care (as documented) at patient's floor/unit and/or counseling patient: (1) Fracture of tibial plateau Encounter type: initial encounter Fracture type: closed Laterality: left Qualified Code(s): S82.142A - Displaced bicondylar fracture of left tibia, initial encounter for closed fracture
[2019-06-26] MEDS ORDERED: cefTRIAXone SODIUM 1,000 MG in DEXTROSE 5% 50 ML IV STA (00:50)
[2019-06-26] MEDS: cefTRIAXone SODIUM 2,000 MG in DEXTROSE 5% 50 ML IV SCH (01:22)
[2019-06-26] MEDS: LEVOTHYROXINE SODIUM 112 MCG TABLET PO SCH (05:55)
[2019-06-26] MEDS: BRINZOLAMIDE (AZOPT) OPS 10 ML BTL OPB SCH ×2 (07:42→20:24)
[2019-06-26] MEDS: SPIRONOLACTONE 25 MG TAB PO SCH (07:42)
[2019-06-26] MEDS: carvediloL 25 MG TAB PO SCH ×2 (07:42→16:43)
[2019-06-26] MEDS: predniSONE 5 MG TAB PO SCH (07:43)
[2019-06-26] MEDS: POTASSIUM CHLORIDE 20 MEQ TABCR PO SCH (07:43)
[2019-06-26] MEDS: FUROSEMIDE 40 MG TAB PO SCH (07:43)
[2019-06-26] MEDS: INSULIN GLARGINE SOLOSTAR 100 UNITS/ML 3 ML PEN SQ SCH (07:43)
[2019-06-26] MEDS ORDERED: ISOSORBIDE MONO EXTENDED REL 30 MG TABCR PO SCH (09:00)
[2019-06-26 09:23] LABS: Basophils # (auto) 0.02 K/uL (0-0.2); Basophils % (auto) 0.3 %; Eosinophils # (auto) 0.08 K/uL (0-0.5); Eosinophils % (auto) 1.2 %; Hematocrit (blood only) 38.5 % (42-52); Hemoglobin 12.9 g/dL (14.0-18.0); Immature Granulocytes # (auto) 0.02 K/uL (0.00-0.02); Immature Granulocytes % (auto) 0.3 %; Lymphocytes # (auto) 1.65 K/uL (1.2-3.4); Lymphocytes % (auto) 25.4 %; Mean Corpuscular Hemoglobin 30.9 pg (25-34); Mean Corpuscular Hgb Conc 33.5 g/dL (32-36); Mean Corpuscular Volume 92.3 fL (80-100); Mean Platelet Volume 9.6 fL (7.4-10.4); Monocytes # (auto) 0.82 K/uL (0.11-0.59); Monocytes % (auto) 12.6 %; Neutrophils # (auto) 3.91 K/uL (1.4-6.5); Neutrophils % (auto) 60.2 %; Platelet Count 131 K/uL (130-400); RDW Coefficient of Variation 13.2 % (11.5-14.5); RDW Standard Deviation 44.6 fL (36.4-46.3); Red Blood Count 4.17 M/uL (4.7-6.1)
[2019-06-26] MEDS: RIVAROXABAN 10 MG TABLET PO SCH (09:46)
[2019-06-26 09:52] LABS: Albumin Level 2.7 gm/dl (3.4-5.0); BUN Creatinine Ratio 24.9 (10-20); Calcium 8.6 mg/dl (8.5-10.1); Creatinine Clr Calc Pharmacy 80.3 ml/min; Est GFR (African American) 94.7; Est GFR (Non-African American) 81.7
[2019-06-26 09:55] LABS: Albumin Globulin Ratio 0.7 (0.9-2); Bilirubin,Total 1.1 mg/dl (0.2-1); Globulin 3.9 gm/dl (2.5-4.0); Total Protein 6.6 gm/dl (6.4-8.2)
--- NOTE | 2019-06-26 11:23 | Orthopedic Progress Note ---
Date of Service June 26, 2019 Assessment & Plan (1) Fracture of tibial plateau: Hinged knee brace unlocked to allow for FROM but non-weightbearing for 6 weeks with walker assistance Xarelto 10 mg daily x 21 days for DVT prophylaxis Pain control with PO meds provided by ED Ice knee 4x/day for 20-25 mins Elevate Left leg Will most likely need discharge to rehab facility. Will discuss with case management Will F/u with Dinh Morejon PA-C at [facility] in 2 weeks With questions please call . Subjective This 84 yo M is seen in f/u of a left tibial plateau fracture. He is currently sitting in bedside chair. States that post op brace comfortable but he had difficulty using the walker without placing the leg down. He has no pain at present. He also denies CP, SOB, nausea, vomiting, fever, chills, sweats, l ethargy or numbness/tingling in the left LE. Review of Systems Review of Systems: All systems reviewed & are unremarkable except as noted in HPI & below Physical Exam Physical Exam: Left knee: TTP over medial joint line with edema and scabbed over abrasions to anterior surface. ROM with brace in place from 10-90 degrees. No erythem, ecchymosis, warmth or palpable deformity. Able to perform SLRT. Calf soft and supple. NV intact. Periph pulses easily palpable. Results & Data Vital Signs (Past 12 Hours) Vital Signs Temp Pulse Pulse Pulse Resp BP Pulse Ox 06/26/19 08:00 61 06/26/19 07:24 36.5 C 16 L 60 96 H 127/75 96 06/26/19 03:48 36.5 C 61 20 126/77 95 06/25/19 23:45 60 06/25/19 23:42 36.6 C 60 18 125/75 92 Laboratory Results Lab Results 06/25/19 06/25/19 06/25/19 Range/Units 12:00 12:00 12:00 WBC 5.52 (4.8-10.8) K/uL RBC 4.76 (4.7-6.1) M/uL Hgb 14.6 (14.0-18.0) g/dL Hct 43.7 (42-52) % MCV 91.8 (80-100) fL MCH 30.7 (25-34) pg MCHC 33.4 (32-36) g/dL RDW Std Deviation 45.0 (36.4-46.3) fL RDW Coeff of Glenda 13.4 (11.5-14.5) % Plt Count 130 (130-400) K/uL MPV 10.5 H (7.4-10.4) fL Immature Gran % (Auto) 0.4 % Neut % (Auto) 66.1 % Lymph % (Auto) 19.2 % [place] % (Auto) 14.1 % Eos % (Auto) 0.2 % Baso % (Auto) 0.0 % Immature Gran # (Auto) 0.02 (0.00-0.02) K/uL Neut # (Auto) 3.65 (1.4-6.5) K/uL Lymph # (Auto) 1.06 L (1.2-3.4) K/uL [place] # (Auto) 0.78 H (0.11-0.59) K/uL Eos # (Auto) 0.01 (0-0.5) K/uL Baso # (Auto) 0.00 (0-0.2) K/uL Sodium 136 (136-145) mmol/L Potassium 4.1 (3.5-5.1) mmol/L Chloride 103 (98-107) mmol/L Carbon Dioxide 26 (21-32) mmol/L Anion Gap 7.0 (3-11) BUN 21 H (7-18) mg/dl Creatinine 1.02 (0.6-1.4) mg/dl Est Cr Clr Drug Dosing 61.4 ml/min Est GFR ( Amer) 76.8 Est GFR (Non-Af Amer) 66.2 BUN/Creatinine Ratio 20.6 H (10-20) Glucose 233 H (70-99) mg/dl POC Glucose (70-99) Calcium 9.5 (8.5-10.1) mg/dl Total Bilirubin 1.4 H (0.2-1) mg/dl AST 12 L (15-37) U/L ALT 22 (12-78) U/L Alkaline Phosphatase 95 (45-117) U/L Troponin I < 0.015 (0-0.045) ng/ml Total Protein 8.2 (6.4-8.2) gm/dl Albumin 3.3 L (3.4-5.0) gm/dl Globulin 4.9 H (2.5-4.0) gm/dl Albumin/Globulin Ratio 0.7 L (0.9-2) TSH 1.330 (0.300-4.500) uIu/ml Urine Color Yellow Urine Appearance Clear (Clear) Urine pH 6.5 (4.5-7.5) Ur Specific [place] 1.026 (1.000-1.030) Urine Protein Negative (Negative) Urine Glucose (UA) 3+ H (Negative) Urine Ketones Negative (Negative) Urine Blood 1+ H (Negative) Urine Nitrite Negative (Negative) Urine Bilirubin Negative (Negative) Urine Urobilinogen Negative (Negative) Ur Leukocyte Esterase 2+ H (Negative) Urine WBC (Auto) 10-30 H (0-5) /hpf Urine RBC (Auto) 0-4 (0-4) /hpf U Hyaline Cast (Auto) 0 (0-5) /lpf U Epithel Cells (Auto) 0-5 (0-5) /lpf Urine Bacteria (Auto) 1+ H (Negative) Urine Yeast Budding A (None Prsent) 06/25/19 06/26/19 06/26/19 Range/Units 19:32 07:30 09:05 WBC 6.50 (4.8-10.8) K/uL RBC 4.17 L (4.7-6.1) M/uL Hgb 12.9 L (14.0-18.0) g/dL Hct 38.5 L (42-52) % MCV 92.3 (80-100) fL MCH 30.9 (25-34) pg MCHC 33.5 (32-36) g/dL RDW Std Deviation 44.6 (36.4-46.3) fL RDW Coeff of Glenda 13.2 (11.5-14.5) % Plt Count 131 (130-400) K/uL MPV 9.6 (7.4-10.4) fL Immature Gran % (Auto) 0.3 % Neut % (Auto) 60.2 % Lymph % (Auto) 25.4 % [place] % (Auto) 12.6 % Eos % (Auto) 1.2 % Baso % (Auto) 0.3 % Immature Gran # (Auto) 0.02 (0.00-0.02) K/uL Neut # (Auto) 3.91 (1.4-6.5) K/uL Lymph # (Auto) 1.65 (1.2-3.4) K/uL [place] # (Auto) 0.82 H (0.11-0.59) K/uL Eos # (Auto) 0.08 (0-0.5) K/uL Baso # (Auto) 0.02 (0-0.2) K/uL Sodium (136-145) mmol/L Potassium (3.5-5.1) mmol/L Chloride (98-107) mmol/L Carbon Dioxide (21-32) mmol/L Anion Gap (3-11) BUN (7-18) mg/dl Creatinine (0.6-1.4) mg/dl Est Cr Clr Drug Dosing ml/min Est GFR ( Amer) Est GFR (Non-Af Amer) BUN/Creatinine Ratio (10-20) Glucose (70-99) mg/dl POC Glucose 192 H 98 (70-99) Calcium (8.5-10.1) mg/dl Total Bilirubin (0.2-1) mg/dl AST (15-37) U/L ALT (12-78) U/L Alkaline Phosphatase (45-117) U/L Troponin I (0-0.045) ng/ml Total Protein (6.4-8.2) gm/dl Albumin (3.4-5.0) gm/dl Globulin (2.5-4.0) gm/dl Albumin/Globulin Ratio (0.9-2) TSH (0.300-4.500) uIu/ml Urine Color Urine Appearance (Clear) Urine pH (4.5-7.5) Ur Specific [place] (1.000-1.030) Urine Protein (Negative) Urine Glucose (UA) (Negative) Urine Ketones (Negative) Urine Blood (Negative) Urine Nitrite (Negative) Urine Bilirubin (Negative) Urine Urobilinogen (Negative) Ur Leukocyte Esterase (Negative) Urine WBC (Auto) (0-5) /hpf Urine RBC (Auto) (0-4) /hpf U Hyaline Cast (Auto) (0-5) /lpf U Epithel Cells (Auto) (0-5) /lpf Urine Bacteria (Auto) (Negative) Urine Yeast (None Prsent) 06/26/19 Range/Units 09:05 WBC (4.8-10.8) K/uL RBC (4.7-6.1) M/uL Hgb (14.0-18.0) g/dL Hct (42-52) % MCV (80-100) fL MCH (25-34) pg MCHC (32-36) g/dL RDW Std Deviation (36.4-46.3) fL RDW Coeff of Glenda (11.5-14.5) % Plt Count (130-400) K/uL MPV (7.4-10.4) fL Immature Gran % (Auto) % Neut % (Auto) % Lymph % (Auto) % [place] % (Auto) % Eos % (Auto) % Baso % (Auto) % Immature Gran # (Auto) (0.00-0.02) K/uL Neut # (Auto) (1.4-6.5) K/uL Lymph # (Auto) (1.2-3.4) K/uL [place] # (Auto) (0.11-0.59) K/uL Eos # (Auto) (0-0.5) K/uL Baso # (Auto) (0-0.2) K/uL Sodium 134 L (136-145) mmol/L Potassium 4.0 (3.5-5.1) mmol/L Chloride 103 (98-107) mmol/L Carbon Dioxide 26 (21-32) mmol/L Anion Gap 5.0 (3-11) BUN 19 H (7-18) mg/dl Creatinine 0.78 (0.6-1.4) mg/dl Est Cr Clr Drug Dosing 80.3 ml/min Est GFR ( Amer) 94.7 Est GFR (Non-Af Amer) 81.7 BUN/Creatinine Ratio 24.9 H (10-20) Glucose 162 H (70-99) mg/dl POC Glucose (70-99) Calcium 8.6 (8.5-10.1) mg/dl Total Bilirubin 1.1 H (0.2-1) mg/dl AST 38 H (15-37) U/L ALT 23 (12-78) U/L Alkaline Phosphatase 71 (45-117) U/L Troponin I (0-0.045) ng/ml Total Protein 6.6 (6.4-8.2) gm/dl Albumin 2.7 L (3.4-5.0) gm/dl Globulin 3.9 (2.5-4.0) gm/dl Albumin/Globulin Ratio 0.7 L (0.9-2) TSH (0.300-4.500) uIu/ml Urine Color Urine Appearance (Clear) Urine pH (4.5-7.5) Ur Specific [place] (1.000-1.030) Urine Protein (Negative) Urine Glucose (UA) (Negative) Urine Ketones (Negative) Urine Blood (Negative) Urine Nitrite (Negative) Urine Bilirubin (Negative) Urine Urobilinogen (Negative) Ur Leukocyte Esterase (Negative) Urine WBC (Auto) (0-5) /hpf Urine RBC (Auto) (0-4) /hpf U Hyaline Cast (Auto) (0-5) /lpf U Epithel Cells (Auto) (0-5) /lpf Urine Bacteria (Auto) (Negative) Urine Yeast (None Prsent) (1) Fracture of tibial plateau Encounter type: initial encounter Fracture type: closed Laterality: left Qualified Code(s): S82.142A - Displaced bicondylar fracture of left tibia, initial encounter for closed fracture
[2019-06-26] MEDS ORDERED: SODIUM CHLORIDE 0.9% 1000ML 500 ML IV ONE (11:36)
--- NOTE | 2019-06-26 14:04 | Hospitalist Progress Note ---
Date of Service June 26, 2019 Assessment & Plan (1) Fracture of tibial plateau: change to full admission as he will be here two midnights ortho recommends hinged knee brace unlocked to allow for FROM but non- weightbearing for 6 weeks with walker assistance Xarelto 10 mg daily x 21 days for DVT prophylaxis Pain control with PO meds - working adequately today Ice knee 4x/day for 20-25 mins Elevate Left leg F/u with Dinh Morejon PA-C at [facility] in 2 weeks at [phone]. plan for rehab/SNF at [facility] hopeful for acceptance tomorrow (2) Ambulatory dysfunction: Physical and Occupational Therapy consults due to fall at home will be needing SNF rehab due to left leg NWB status (3) Diabetes: Novolog monitor for hypoglycemia (4) CAD (coronary artery disease): Continue home medication: Lisinopril 2.5 mg p.o., isosorbide mononitrate 30 mg p.o. every morning, furosemide 40 mg p.o. every morning, carvedilol 25 mg p.o. twice daily ID, Spironolactone 25 mg p.o. every morning. transient low BP today but resolved will hold Imdur, decrease Coreg to 12.5mg (5) Hypothyroidism: Continue levothyroxine 112 MCG's p.o. every morning. TSH normal 1.33 (6) Hyperlipidemia: Continue atorvastatin 10 mg p.o. nightly. Subjective patient seen twice today this morning he was resting in bed, reported that pain was well controlled later in the morning RN reported his BP was in the 80's systolic both arms patient sitting up in chair, mentating normally, no light headedness, no chest pain, no dyspnea had a brief run of V tach, 10 beats, later in the afternoon, again no symptoms discussed with orthopedic surgery, appreciate their input, utilize brace, NWB for 6 weeks labs reviewed, CBC and BMP stable Review of Systems Review of Systems: All systems reviewed & are unremarkable except as noted in HPI & below Respiratory: no cough, no dyspnea and no wheezing Cardiovascular: no chest pain, no palpitations, no syncope, no edema and no claudication Gastrointestinal: no abdominal pain, no nausea, no vomiting, no constipation and no diarrhea/loose stools Musculoskeletal: + joint pain (left knee pain) Physical Exam Constitutional: WD/WN, vitals as above Eyes: PERRL, conjunctivae normal, anicteric sclerae ENMT: external ear and nose normal, oropharynx normal Neck: trachea midline, no thyromegaly Respiratory: normal respiratory effort, lungs clear to auscultation Cardiovascular: RRR, no murmur, no edema Gastrointestinal (Abdomen): normal bowel sounds, soft, nontender, no hepatosplenomegaly Musculoskeletal: no cyanosis or clubbing, extremities motor strength 5/5 (left knee immobilized, swollen, tender) Skin: no rashes, warm and dry Neurologic: patellar DTR's 2+ bilat, sensation intact and PERRL, EOMI, accommodation nl, no face palsy, no dysarthria Psychiatric: A+Ox3, euthymic affect Lymphatic: no cervical or axillary lymphadenopathy Results & Data Vital Signs (Past 12 Hours) Vital Signs Temp Pulse Pulse Pulse Resp BP BP 06/26/19 13:15 105/52 L 06/26/19 11:46 36.3 C L 62 16 86/49 L 83/45 L 06/26/19 08:00 61 06/26/19 07:24 36.5 C 16 L 60 96 H 127/75 06/26/19 03:48 36.5 C 61 20 126/77 Pulse Ox 06/26/19 13:15 06/26/19 11:46 94 06/26/19 08:00 06/26/19 07:24 96 06/26/19 03:48 95 Laboratory Results Laboratory Results - last 24 hr 06/26/19 06/26/19 06/26/19 07:30 09:05 09:05 WBC 6.50 RBC 4.17 L Hgb 12.9 L Hct 38.5 L MCV 92.3 MCH 30.9 MCHC 33.5 RDW Std Deviation 44.6 RDW Coeff of Glenda 13.2 Plt Count 131 MPV 9.6 Immature Gran % (Auto) 0.3 Neut % (Auto) 60.2 Lymph % (Auto) 25.4 [place] % (Auto) 12.6 Eos % (Auto) 1.2 Baso % (Auto) 0.3 Immature Gran # (Auto) 0.02 Neut # (Auto) 3.91 Lymph # (Auto) 1.65 [place] # (Auto) 0.82 H Eos # (Auto) 0.08 Baso # (Auto) 0.02 Sodium 134 L Potassium 4.0 Chloride 103 Carbon Dioxide 26 Anion Gap 5.0 BUN 19 H Creatinine 0.78 Est Cr Clr Drug Dosing 80.3 Est GFR ( Amer) 94.7 Est GFR (Non-Af Amer) 81.7 BUN/Creatinine Ratio 24.9 H Glucose 162 H POC Glucose 98 Lactate Calcium 8.6 Total Bilirubin 1.1 H AST 38 H ALT 23 Alkaline Phosphatase 71 Troponin I Total Protein 6.6 Albumin 2.7 L Globulin 3.9 Albumin/Globulin Ratio 0.7 L 06/26/19 06/26/19 06/26/19 11:43 11:47 11:51 WBC RBC Hgb Hct MCV MCH MCHC RDW Std Deviation RDW Coeff of Glenda Plt Count MPV Immature Gran % (Auto) Neut % (Auto) Lymph % (Auto) [place] % (Auto) Eos % (Auto) Baso % (Auto) Immature Gran # (Auto) Neut # (Auto) Lymph # (Auto) [place] # (Auto) Eos # (Auto) Baso # (Auto) Sodium Potassium Chloride Carbon Dioxide Anion Gap BUN Creatinine Est Cr Clr Drug Dosing Est GFR ( Amer) Est GFR (Non-Af Amer) BUN/Creatinine Ratio Glucose POC Glucose 211 H Lactate 1.4 Calcium Total Bilirubin AST ALT Alkaline Phosphatase Troponin I < 0.015 Total Protein Albumin Globulin Albumin/Globulin Ratio 06/26/19 17:17 WBC RBC Hgb Hct MCV MCH MCHC RDW Std Deviation RDW Coeff of Glenda Plt Count MPV Immature Gran % (Auto) Neut % (Auto) Lymph % (Auto) [place] % (Auto) Eos % (Auto) Baso % (Auto) Immature Gran # (Auto) Neut # (Auto) Lymph # (Auto) [place] # (Auto) Eos # (Auto) Baso # (Auto) Sodium Potassium Chloride Carbon Dioxide Anion Gap BUN Creatinine Est Cr Clr Drug Dosing Est GFR ( Amer) Est GFR (Non-Af Amer) BUN/Creatinine Ratio Glucose POC Glucose 285 H Lactate Calcium Total Bilirubin AST ALT Alkaline Phosphatase Troponin I Total Protein Albumin Globulin Albumin/Globulin Ratio Medications Administered Current Inpatient Medications Acetaminophen (Tylenol) 650 mg PO Q4H PRN PRN Reason: Pain or Fever Stop: 07/25/19 19:38 Al Hydrox/Mg Hydrox/Simethicone (Maalox) 15 ml PO Q4H PRN PRN Reason: Dyspepsia Stop: 07/25/19 19:38 Brinzolamide (Azopt) 1 drops OPB BID [facility] Stop: 07/25/19 20:59 Last Admin: 06/26/19 07:42 Dose: 1 drops Documented by: Carvedilol (Coreg) 25 mg PO BIDM [facility] Stop: 07/26/19 07:59 Last Admin: 06/26/19 16:43 Dose: 25 mg Documented by: Dextrose (Dextrose 50%) 25 - 50 ml IV UD PRN; Protocol PRN Reason: Hypoglycemia Protocol Stop: 07/25/19 20:29 Furosem[facility] (Lasix) [facility] Stop: 07/26/19 08:59 Last Admin: 06/26/19 07:43 Dose: 40 mg Documented by: Glucagon (Glucagen) 1 mg IM UD PRN; Protocol PRN Reason: Hypoglycemia Protocol Stop: 07/25/19 20:29 Glucose (Glucose 40%) 15 - 30 gm PO UD PRN; Protocol PRN Reason: Hypoglycemia Protocol Stop: 07/25/19 20:29 Glucose (Dex4 Glucose) 4 - 8 tabs PO UD PRN; Protocol PRN Reason: Hypoglycemia Protocol Stop: 07/25/19 20:29 Ceftriaxone Sodium 2,000 mg/ (Dextrose) 70 mls @ 140 mls/hr IV Q24H [facility] Stop: 07/06/19 00:59 Last Infusion: 06/26/19 01:52 Dose: Infused Documented by: Insulin Aspart (Novolog Flexpen) 0 units SC ACHS [facility] Stop: 07/26/19 16:29 Last Admin: 06/26/19 17:39 Dose: 8 units Documented by: Insulin Glargine (Lantus Solostar Pen) 30 units SQ QAM [facility] Stop: 07/26/19 08:59 Last Admin: 06/26/19 07:43 Dose: 30 units Documented by: Isosorbide Mononitrate (Imdur Extended Rel) 30 mg PO QAM [facility] Stop: 07/26/19 08:59 Last Admin: 06/26/19 07:43 Dose: 30 mg Documented by: Levothyroxine Sodium (Synthroid) 112 mcg PO DAILYBB [facility] Stop: 07/26/19 06:29 Last Admin: 06/26/19 05:55 Dose: 112 mcg Documented by: Lisinopril (Zestril) 2.5 mg PO MoWeFr@0900 [facility] Stop: 07/27/19 08:59 Magnesium Hydroxide (Milk Of Magnesia) 30 ml PO Q12H PRN PRN Reason: Constipation Stop: 07/25/19 19:38 Miscellaneous (Carbohydrates For Hypoglycemia) 15 - 30 gm PO UD PRN PRN Reason: Hypoglycemia Treatment Stop: 07/25/19 20:29 Oxycodone/Acetaminophen (Percocet 5mg/325mg) 1 tab PO Q4H PRN PRN Reason: Pain Stop: 07/09/19 19:38 Last Admin: 06/26/19 07:46 Dose: 1 tab Documented by: Polyethylene Glycol (Miralax Powder Packet) 17 gm PO DAILY PRN PRN Reason: Constipation Stop: 07/25/19 19:38 Potassium Chloride (Klor-Con M20) 20 meq PO QAM [facility] Stop: 07/26/19 08:59 Last Admin: 06/26/19 07:43 Dose: 20 meq Documented by: Prednisone (Prednisone) 20 mg PO DAILY [facility]; Taper Stop: 06/30/19 08:59 Last Admin: 06/26/19 07:43 Dose: 20 mg Documented by: Rivaroxaban (Xarelto) 10 mg PO DAILY [facility] Stop: 07/16/19 09:01 Last Admin: 06/26/19 09:46 Dose: 10 mg Documented by: Simvastatin (Zocor) 10 mg PO HS [facility] Stop: 07/25/19 20:59 Last Admin: 06/25/19 21:42 Dose: 10 mg Documented by: Spironolactone (Aldactone) 25 mg PO QAM [facility] Stop: 07/26/19 08:59 Last Admin: 06/26/19 07:42 Dose: 25 mg Documented by: PG Care Time/CCT Total # of Minutes Spent Total Time Spent with Patient: Total time spent is greater than 50% in coordination of care (as documented) at patient's floor/unit and/or counseling patient: (1) Fracture of tibial plateau Encounter type: initial encounter Fracture type: closed Laterality: left Qualified Code(s): S82.142A - Displaced bicondylar fracture of left tibia, initial encounter for closed fracture
[2019-06-26] MEDS: INSULIN ASPART 100 UNITS/ML 3 ML PEN SC SCH ×2 (17:39→21:14)
[2019-06-26] MEDS: SIMVASTATIN 10 MG TAB PO SCH (20:25)
[2019-06-27] MEDS: cefTRIAXone SODIUM 2,000 MG in DEXTROSE 5% 50 ML IV SCH (00:05)
[2019-06-27] MEDS: LEVOTHYROXINE SODIUM 112 MCG TABLET PO SCH (05:40)
[2019-06-27 06:53] LABS: Basophils # (auto) 0.01 K/uL (0-0.2); Basophils % (auto) 0.2 %; Eosinophils # (auto) 0.09 K/uL (0-0.5); Eosinophils % (auto) 1.5 %; Hematocrit (blood only) 36.1 % (42-52); Hemoglobin 12.3 g/dL (14.0-18.0); Immature Granulocytes # (auto) 0.01 K/uL (0.00-0.02); Immature Granulocytes % (auto) 0.2 %; Lymphocytes % (auto) 45.2 %; Mean Corpuscular Hgb Conc 34.1 g/dL (32-36); Mean Corpuscular Volume 90.9 fL (80-100); Monocytes # (auto) 0.64 K/uL (0.11-0.59); Monocytes % (auto) 10.3 %; Neutrophils # (auto) 2.64 K/uL (1.4-6.5); Neutrophils % (auto) 42.6 %; Platelet Count 125 K/uL (130-400); RDW Standard Deviation 43.4 fL (36.4-46.3); Red Blood Count 3.97 M/uL (4.7-6.1); White Blood Count 6.19 K/uL (4.8-10.8)
[2019-06-27 07:26] LABS: Albumin Level 2.6 gm/dl (3.4-5.0); BUN Creatinine Ratio 26.1 (10-20); Calcium 8.3 mg/dl (8.5-10.1); Creatinine Clr Calc Pharmacy 79.2 ml/min; Est GFR (African American) 94.2; Est GFR (Non-African American) 81.3; Potassium 3.7 mmol/L (3.5-5.1)
[2019-06-27 07:29] LABS: Albumin Globulin Ratio 0.7 (0.9-2); Bilirubin,Total 0.8 mg/dl (0.2-1); Total Protein 6.6 gm/dl (6.4-8.2)
[2019-06-27] MEDS: SPIRONOLACTONE 25 MG TAB PO SCH (07:45)
[2019-06-27] MEDS: POTASSIUM CHLORIDE 20 MEQ TABCR PO SCH (07:46)
[2019-06-27] MEDS: predniSONE 5 MG TAB PO SCH (07:47)
[2019-06-27] MEDS: FUROSEMIDE 40 MG TAB PO SCH (07:47)
[2019-06-27] MEDS: RIVAROXABAN 10 MG TABLET PO SCH (07:48)
[2019-06-27] MEDS: BRINZOLAMIDE (AZOPT) OPS 10 ML BTL OPB SCH (07:49)
[2019-06-27] MEDS: INSULIN GLARGINE SOLOSTAR 100 UNITS/ML 3 ML PEN SQ SCH (07:50)
[2019-06-27] MEDS ORDERED: carvediloL 12.5 MG TAB PO SCH (08:00)
[2019-06-27] MEDS: INSULIN ASPART 100 UNITS/ML 3 ML PEN SC SCH ×2 (08:29→12:17)
[2019-06-27] MEDS ORDERED: LISINOPRIL 2.5 MG TAB PO SCH (09:00)
--- NOTE | 2019-06-27 09:48 | Orthopedic Progress Note ---
Date of Service June 27, 2019 Assessment & Plan (1) Fracture of tibial plateau: Hinged knee brace unlocked to allow for FROM but non-weightbearing for 6 weeks with walker assistance Xarelto 10 mg daily x 21 days for DVT prophylaxis Pain control with PO meds as needed Ice knee 4x/day for 20-25 mins Elevate Left leg Disposition pending per insurance authorization. Allowed for discharge from ortho standpoint. Will F/u with Dinh Morejon PA-C at [facility] in 2 weeks. Appo intment scheduled on 07/11/19 at 10:30 a.m. With questions please call . Subjective Doing fine, no complaints of pain. States that it hurts a little bit with movement. Has been non weight bearing left leg. Allowed for range of motion as tolerated. Physical Exam Physical Exam: left knee brace intact. Sitting in a chair with knee crossed over his right leg. Brace adjusted as one strap was latched. Distal N/V intact. Moves toes and foot well. Distal sensation normal. Results & Data Vital Signs (Past 12 Hours) Vital Signs Temp Pulse Pulse Resp BP Pulse Ox 06/27/19 08:00 68 06/27/19 07:30 36.4 C L 60 18 133/73 96 06/27/19 03:18 36.6 C 60 18 120/51 L 96 06/26/19 23:57 60 06/26/19 23:37 36.4 C L 60 18 105/48 L 95 (1) Fracture of tibial plateau Encounter type: initial encounter Fracture type: closed Laterality: left Qualified Code(s): S82.142A - Displaced bicondylar fracture of left tibia, initial encounter for closed fracture
--- NOTE | 2019-06-27 10:16 | Discharge Summary ---
Date of Service June 27, 2019 Admission HPI Per Admitting Provider Patient is a 84 years old male with past medical history of Coronary artery disease, diabetes mellitus type 2, ambulatory dysfunction, who presented to the emergency room after he fell on Tuesday night and injured his left leg below the knee. The patient reports that he was walking up the stairs into his house when he tripped and fell onto his knee. He states that he laid down on the porch for 1 hour before being found by his neighbor. He noticed that he has been heavily increased difficulty moving around the house since that time. He stated that the pain worsens with movement of the leg or with putting weight on his leg. The patient reports that he was unable to stand up from his toilet 2 days ago and he had to call his relatives to help him stand up. He states that he was taken to the urgent care in [facility] and had an x-rays done at that time. He noticed that there was no fracture or dislocation noted on the x-rays. He reports that was found to have a contusion with fluid buildup in the joint as well as arthritic changes. He noticed that he was started on prednisone which he started taking yesterday. He denies any head trauma, neck pain vomiting nausea abdominal pain frequency urgency diarrhea. He denies weakness in his legs patient also said that he did not suffer of any syncope or presyncope. Patient also have a pacemaker but he does not know what is the made. EKG reviewed and shows atrial sensed ventricular paced rhythm with occasional premature ventricular complexes.Labs: WBC 5.52, hemoglobin 14.6, hematocrit 43.7 platelets 130, sodium 136, potassium 4.1, BUN 21, creatinine 1.02, GFR 66.2, TSH 1.33. Urine shows 1+ blood, 2+ leukocyte esterase and urine WBCs 10-30, with budding yeast and 1+ bacteria. The decision was made to admit patient for complicated urinary tract infection, fracture of tibial plateau at [facility] on telemetry. Family was told to look for the patient's pacemaker company because they said they have information at home. Pacemaker interrogation not that done yet. Last pacemaker interrogation was 3 months ago. Principal Diagnosis Left tibial plateau fracture Discharge Exam Constitutional WD/WN, vitals as above Eyes PERRL, conjunctivae normal, anicteric sclerae ENMT external ear and nose normal, oropharynx normal Neck trachea midline, no thyromegaly Respiratory normal respiratory effort, lungs clear to auscultation Cardiovascular RRR, no murmur, no edema Gastrointestinal (Abdomen) normal bowel sounds, soft, nontender, no hepatosplenomegaly Musculoskeletal no cyanosis or clubbing, extremities motor strength 5/5 (left knee immobilized, swollen, tender) Skin no rashes, warm and dry Neurologic patellar DTR's 2+ bilat, sensation intact and PERRL, EOMI, accommodation nl, no face palsy, no dysarthria Psychiatric A+Ox3, euthymic affect Lymphatic no cervical or axillary lymphadenopathy Discharge Data Allergies Allergy/AdvReac Type Severity Reaction Status Date / Time metolazone AdvReac Dizziness Unverified 06/25/19 12:29 and Blood Pressure Dropped Consultations 06/25/19 14:46 ED Decision to Admit Stat 06/25/19 14:53 Consult Orthopedic Surgery Stat Ordered Studies 06/25/19 11:27 CT head/brain wo con Stat 06/25/19 13:24 CT knee LT wo con Stat Hospital Course (1) Fracture of tibial plateau: ortho recommends hinged knee brace unlocked to allow for FROM but non- weightbearing for 6 weeks with walker assistance Xarelto 10 mg daily x 21 days for DVT prophylaxis Pain control with PO meds - working adequately Ice knee 4x/day for 20-25 mins Elevate Left leg F/u with Dinh Morejon PA-C at [facility] in 2 weeks at . plan for rehab/SNF at [facility] (2) Ambulatory dysfunction: Physical and Occupational Therapy consults due to fall at home will be needing SNF rehab due to left leg NWB status (3) Diabetes: Novolog monitor for hypoglycemia, no episodes (4) CAD (coronary artery disease): Continue home medication: Lisinopril 2.5 mg p.o. furosemide 40 mg p.o. every morning, Spironolactone 25 mg p.o. every morning. stopped Imdur and decreased Coreg to 12.5mg twice a day due to low normal blood pressures monitor pressure at [facility] (5) Hypothyroidism: Continue levothyroxine 112 MCG's p.o. every morning. TSH normal 1.33 (6) Hyperlipidemia: Continue atorvastatin 10 mg p.o. nightly. Total Time Total Time Spent Total Time Spent (In Minutes): 32 minutes Total Time Includes: Examination of the Patient, Discharge Planning, Medication Reconciliation and Communication With Other Providers ([facility]) Discharge Plan Discharge Items Patient Disposition: Transfer Correction Fac Reason For Visit: LEFT LEG PAIN,FREQUENT FALLS Discharge Diagnosis: Left tibial plateau fracture Falls, weakness, ambulatory dysfunction Condition on Discharge: Good Goals: improve strength and mobility promote fracture healing by wearing brace, non-weight bearing for 6 weeks Activity: Per Instructions section Lifting: None Bathing: No limitations Exercise/Sports: Gradually increase as tolerated Non-emergency contact: Primary Care Provider and Surgeon Call non-emergency contact if: you have any medication questions, your symptoms worsen, your pain is not controlled and you have a fever Follow-up/Referrals: Tammy Do MD [Primary Care Provider] - Diet: Carb Consistent or DM2 Addtl Attending Provider Instructions: Medications: - XARELTO: 10mg daily for 21 days for DVT prophylaxis while he is immobilized - PERCOCET: take as needed for pain related to fracture - CARVEDILOL: note that the dose is decreased to 12.5mg BID, this is to allow for higher blood pressures - IMDUR: stopped this medication Tibial plateau fracture due to fall manage non-operatively with hinged knee brace, strict NWB for 6 weeks Xarelto for DVT prophylaxis pain control with Tylenol, use Percocet PRN follow up with [facility] on 07/11 Fall at home noted that blood pressure was low at times, even low normal at best stopped Imdur, reduced Carvedilol to 12.5mg BID no falls here, no syncope, eating well and drinking well DNR: discussed with patient on 06/27 at the bedside, he would not want heroic measures Addtl Rapid Outsole Stitcher Provider Instructions: [facility] Hinged knee brace unlocked to allow for FROM but non-weightbearing for 6 weeks with walker assistance Xarelto 10 mg daily x 21 days for DVT prophylaxis Pain control with PO meds as needed Ice knee 4x/day for 20-25 mins Elevate Left leg when able Will F/u with Dinh Morejon PA-C at [facility] in 2 weeks. Appointment scheduled on 07/11/19 at 10:30 a.m. With questions please call . Pending Studies at Discharge: No Stand-Alone Forms: My [facility] Skilled Items Patient informed of condition?: Yes DNR: Yes Discharge Level of Care: Skilled Communicable Disease: No Discharge Prognosis: Stable Lines: None Urinary Catheter: No Medications and DC Order Prescriptions: New Xarelto 10 mg tablet 10 mg PO DAILY 21 Days Qty: 21 RF: 0 carvedilol 12.5 mg Tablet 12.5 mg PO BIDM 30 Days Qty: 60 RF: 1 oxycodone-acetaminophen [Percocet] 5-325 mg Tablet 1 tab PO Q4H PRN (Reason: pain) 10 Days Qty: 30 RF: 0 Xarelto 10 mg Tablet 10 mg PO DAILY 21 Days Qty: 21 RF: 0 Continued furosemide 40 mg Tablet 40 mg PO QAM RF: 0 Azopt 1 % drops,suspension 1 drp OPB BID RF: 0 simvastatin 10 mg Tablet 10 mg PO HS RF: 0 spironolactone [Aldactone] 25 mg Tablet 25 mg PO QAM RF: 0 potassium chloride [Klor-Con M20] 20 mEq Tablet,Er Particles/Crystals 20 meq PO QAM RF: 0 lisinopril 2.5 mg Tablet 2.5 mg PO MOWEFR RF: 0 levothyroxine 112 mcg tablet 112 mcg PO QAM RF: 0 Januvia 100 mg tablet 100 mg PO QAM RF: 0 Lantus Solostar U-100 Insulin 100 unit/mL (3 mL) insulin pen 30 unit SUBCUT QAM RF: 0 Discontinued carvedilol [Coreg] 25 mg Tablet 25 mg PO BIDM RF: 0 isosorbide mononitrate 30 mg Tablet Extended Release 24 Hr 30 mg PO QAM RF: 0 prednisone 5 mg tablet 5 - 30 mg PO DAILY RF: 0 Discharge Orders: Discharge Order (Routine); Ordered 06/27/19 Ordered By: Scooby Salamanca Admission Data Admit Date/Time: 06/26/19 11:45 Attending Provider: Scooby Salamanca Admit Provider: Wilman Santillan Primary Care Provider: Tammy Do Other Providers: Wilman Santillan ; Galindo Olivera Other Interventions: Discharge Summary Assessment (RN) Last Done: 06/27/19 11:37 DC Date/Time DO NOT enter until pt leaves facility: 06/27/19 13:10
--- NOTE | 2019-07-04 08:22 | Coding Query ---
CODING QUERY To promote full compliance with coding requirements relating to patient care, provider participation is requested in all cases of winding lathe operator uncertainty. Please assist us with the question(s) below: Coding Question(s): Dr. Salamanca, The discharge summary states the following: Urine shows 1+ blood, 2+ leukocyte esterase and urine WBCs 10-30, with budding yeast and 1+ bacteria. The decision was made to admit patient for complicated urinary tract infection, fracture of tibial plateau at [facility] on telemetry. The microbiology report states the following; Urine Culture - Final More than three types of organisms present, all high counts mixed probable skin melanie - No further identifications or sensitivities to follow. Please clarify if: ( ) UTI was present and treated during this encounter ( x ) UTI was ruled out ( ) Other, please explain ( ) Unable to clinically determine Physician's Response(s): Thank you for your time, KIRILL Carpenter, [facility]
== END 2019-06-27 13:10 | DRG 563 ==
LOC: ED 10:56 → 2N 10:56 → SUATTDRO 17:59 → 2N 19:04
DX: I25.10 Atherosclerotic heart disease of native coronary artery without angina pectoris; E11.9 Type 2 diabetes mellitus without complications; R29.6 Repeated falls; E03.9 Hypothyroidism, unspecified; S82.142A Displaced bicondylar fracture of left tibia, initial encounter for closed fracture; Z79.890 Hormone replacement therapy; W10.8XXA Fall (on) (from) other stairs and steps, initial encounter; Z87.891 Personal history of nicotine dependence; Z88.8 Allergy status to other drugs, medicaments and biological substances; Z95.0 Presence of cardiac pacemaker; E78.5 Hyperlipidemia, unspecified; Z79.52 Long term (current) use of systemic steroids; Z91.81 History of falling; I95.9 Hypotension, unspecified; Z79.899 Other long term (current) drug therapy; Y92.008 Other place in unspecified non-institutional (private) residence as the place of occurrence of the external cause; M17.12 Unilateral primary osteoarthritis, left knee; Z79.4 Long term (current) use of insulin